=== PATIENT | male | born 1965 | race Caucasian/White ===

== ENCOUNTER 2016-11-05 11:24 | Emergency (ER) | payer OTHER ==
--- NOTE | 2016-11-05 13:26 | DIAGNOSTIC IMAGING REPORT ---
PROCEDURE: CT ABD/PELVIS WITH CONTRAST CLINICAL INDICATION: Lower abdominal pain and blood in the stools x2 days. TECHNIQUE: 125 ml of Isovue 300 were injected intravenously and axial images were obtained of the entire abdomen and pelvis with sagittal and coronal reformations. COMPARISON: CT abdomen/pelvis 08/29/2011. FINDINGS: ABDOMEN: Lung base are clear. Normal heart size. Mild hepatic steatosis. Gallbladder, pancreas, spleen, adrenal glands and the kidneys are normal. Normal abdominal aorta. Moderate splenic flexure and descending colon diverticulosis. PELVIS: Normal appendix. Moderate diverticulosis of the sigmoid colon with midsigmoid bowel wall thickening and minor inflammatory changes. No extraluminal air or abscess. Mildly enlarged prostate. Mild L5-S1 disc space narrowing. IMPRESSION: 1. Mild sigmoid diverticulitis 2. Descending colon diverticulosis 3. Results discussed with Dr. Roberts All CT scans at this facility use dose modulation, iterative reconstruction, and/or weight-based dosing when appropriate to reduce radiation dose to as low as reasonably achievable.
--- NOTE | 2016-11-05 13:44 | ED ORDER SUMMARY ---
..... Patient: RANDA SHEETS OrderSheet [facility] VisitID: [id number] [place] [address] 51y, M Registration Date/Time: 11/05/2016 ORDER SHEET Weight: 70.3 kg (stated) Allergies: None GENERAL ORDERS: CBC w Diff Urgent (11:36 11/05/2016 Talisha SHERIFF) (Ack 11:38 PWeiler ER Tech1) (11:55 KPage-Kuchan R.N.) CMP Urgent (11:36 11/05/2016 Talisha SHERIFF) (Ack 11:38 PWeidonita ER Tech1) (11:55 KPage-Kuchan R.N.) UA-Culture if indicated Urgent (11:36 11/05/2016 Talisha SHERIFF) (Ack 11:38 Maggie ER Tech1) Amylase Urgent (11:36 11/05/2016 Talisha SHERIFF) (Ack 11:38 PWeiler ER Tech1) (11:55 KPage-Kuchan R.N.) Lipase Urgent (11:36 11/05/2016 Talisha SHERIFF) (Ack 11:38 PWeiler ER Tech1) (11:55 KPage-Kuchan R.N.) Set up (anoscope) (12:14 11/05/2016 Talisha SHERIFF) (12:18 MWinterer R.N.) CT Abd/Pel w Cont (No) (N/A) Urgent (12:46 11/05/2016 Talisha SHERIFF) (Ack 12:48 PWeiler ER Tech1) (13:09 PWeiler ER Tech1) MEDICATION ORDERS: IV FLUIDS: IV NS : initial bolus 500 mL (1000 mL/hr), then 125 mL/hr for 4h (NOW); Urgent (11:36 11/05/2016 Talisha SHERIFF) (11:55 KPage-Kuchan R.N.) ORDER SHEET NOTES: [Electronically signed by Joey Brunson R.N. (14:00 11/05/2016)] [Electronically signed by Paul Roberts MD (14:11/05/2016)] [Electronically locked/signed by Joey Brunson R.N. (14:00 11/05/2016)]
--- NOTE | 2016-11-05 13:44 | ED ORDER SUMMARY ---
..... Patient: RANDA SHEETS OrderSheet [facility] VisitID: [id number] [place] [address] 51y, M Registration Date/Time: 11/05/2016 ORDER SHEET Weight: 70.3 kg (stated) Allergies: None GENERAL ORDERS: CBC w Diff Urgent (11:36 11/05/2016 Talisha SHERIFF) (Ack 11:38 PWeiler ER Tech1) (11:55 KPage-Kuchan R.N.) CMP Urgent (11:36 11/05/2016 Talisha SHERIFF) (Ack 11:38 PWeidonita ER Tech1) (11:55 KPage-Kuchan R.N.) UA-Culture if indicated Urgent (11:36 11/05/2016 Talisha SHERIFF) (Ack 11:38 Maggie ER Tech1) Amylase Urgent (11:36 11/05/2016 Talisha SHERIFF) (Ack 11:38 PWeiler ER Tech1) (11:55 KPage-Kuchan R.N.) Lipase Urgent (11:36 11/05/2016 Talisha SHERIFF) (Ack 11:38 PWeiler ER Tech1) (11:55 KPage-Kuchan R.N.) Set up (anoscope) (12:14 11/05/2016 Talisha SHERIFF) (12:18 MWinterer R.N.) CT Abd/Pel w Cont (No) (N/A) Urgent (12:46 11/05/2016 Talisha SHERIFF) (Ack 12:48 PWeiler ER Tech1) (13:09 PWeiler ER Tech1) MEDICATION ORDERS: IV FLUIDS: IV NS : initial bolus 500 mL (1000 mL/hr), then 125 mL/hr for 4h (NOW); Urgent (11:36 11/05/2016 Talisha SHERIFF) (11:55 KPage-Kuchan R.N.) ORDER SHEET NOTES: [Electronically signed by Joey Brunson R.N. (14:00 11/05/2016)] [Electronically signed by Paul Roberts MD (14:11/05/2016)] [Electronically locked/signed by Joey Brunson R.N. (14:00 11/05/2016)]
--- NOTE | 2016-11-05 13:44 | ED NURSING NOTES ---
Clinical Report - Nurses [facility] [address] [place] [address] 11/05/2016 11:28 Patient: RANDA SHEETS TRIAGE Triage time 11:35 Dov 2016. Chief Complaint: CONSTIPATION, RECTAL BLEEDING and BLOOD IN STOOLS (pt with hx of diverticulits, reports constipated past few days, tried laxatives and this morning had bright red blood starting at 1000 today, reports feeling "bloated"). Alert. No acute distress. SEPSIS SCREEN: Sepsis Screen. Negative (no infection suspected/documented). --11:39 Yassine Lincoln R.N. 11:35 11/05/16. BP: 141/94. HR: 83. RR: 17. O2 saturation: 98%. Temp: 98.2 F. Pain level now: 09/25. --11:39 Yassine Lincoln R.N. Weight: 70.3 kg stated. Height/Length: 68 inches Per Patient. BMI: 23.6. --11:37 Yassine Lincoln R.N. Medications None. --11:36 Yassine Lnicoln R.N. Medication/allergy information source: the patient. --11:39 Yassine Lincoln R.N. Allergies None. --11:36 Yassine Lincoln R.N. History Arrived by private vehicle. Historian: patient. 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 PAST MEDICAL HX: Immunizations: up-to-date. SURGERY HX: No history of previous surgery. SOCIAL HX: Heavy tobacco smoker (cigarette)- 1 pack per day. Occasional alcohol use. History of drug use: marijuana. No known contact with a sick individual. ABUSE ASSESSMENT: No report of abuse. SELF HARM ASSESSMENT: A self harm assessment was performed. The patient answered "no" to the question "Do you have thoughts of harming or killing yourself?". FALL RISK ASSESSMENT: Fall risk assessment completed. No fall risk identified. NUTRITIONAL RISK ASSESSMENT: The nutritional risk assessment revealed no deficiencies. FUNCTIONAL ASSESSMENT: Functional assessment: no impairments noted. LEARNING NEEDS ASSESSMENT: The learning needs assessment revealed no barriers. SKIN INTEGRITY ASSESSMENT: Skin integrity risk assessment completed. No skin integrity risk identified. --11:39 Yassine Lincoln R.N. PROBLEMS: UTI - Urinary Tract Infection. Immunizations. Abdominal Pain. Diverticulitis. Back Pain. --11:37 Yassine Lincoln R.N. ADDITIONAL SURGERIES: no known surgeries. Interventions ID band on patient. To treatment room. --11:39 Yassine Lincoln R.N. PHYSICAL ASSESSMENT Ambulatory to room. Patient gowned. GENERAL / NEURO / PSYCH: Alert. Oriented X 4. Appears in no acute distress. HEENT: Mucous membranes are pink. RESPIRATORY: Respirations not labored. CVS: Capillary refill less than 2 seconds. GI / : Diminished bowel sounds in all quadrants. SKIN: Skin is warm and dry. --11:41 Yassine Lincoln R.N. NURSING PROGRESS NOTES Pulse oximeter and NIBP monitor placed on patient; monitor alarms on. Patient gowned. Head of bed elevated. Reassurance given. Patient identifiers checked. Call light placed in reach. Side rails up. Bed placed in lowest position. Brakes of bed on. Patient ready for evaluation- chart flagged. Patient waiting for evaluation. --11:41 Yassine Lincoln R.N. 11:45 11/05/2016 Site #1 started via IV in the right antecubital space with an 20g angiocath; one attempt. Blood drawn: rainbow set. Labeled in the presence of the patient and sent to the lab. Saline lock flushed with 10 mL saline. --11:55 Yassine Lincoln R.N. 11:50 11/05/2016 Started bag #1 1000 mL IV Fluids IV NS (Saline); at 500 mL/hr via site #1 via dial-a-flow. Allergies verified and confirmed 5 rights. IV patency established. IV site checked: no pain, redness, or swelling. IV flushed thoroughly pre- and post-medication administration. --11:55 Yassine Lincoln R.N. 13:57 11/05/2016 IV Fluids IV NS Discontinued: bag #1 infused. Total amount infused: 550 mL. IV patency established. IV site checked: no pain, redness, or swelling. IV flushed thoroughly. --13:57 Joey Brunson R.N. DISPOSITION / DISCHARGE 13:56 11/05/2016 Site #1 removed upon discharge. Catheter intact. --13:56 Joey Brunson R.N. 13:58 11/05/16. Condition at departure: improved. The goals identified in the patient's plan of care were met. No learning barriers present. Discharge instructions provided and reviewed with the patient and family. Reviewed warnings. Reviewed medication(s). Treatments reviewed. Patient and family verbalized understanding. Written instructions provided in Citizen Of [place]. The patient was discharged by the physician. He was discharged home and accompanied by family. He left the Emergency Department ambulatory and via private vehicle. Family member driving. FALL RISK ASSESSMENT: Fall risk assessment completed. No fall risk identified. --13:58 Joey Brunson R.N. 13:56 11/05/16. BP: 145/71. HR: 79. RR: 16. O2 saturation: 99% on room air. Temp: 98 F (oral). Pain level now: 07/26. --13:58 Joey Brunson R.N. 13:58 11/05/16. Departure time: 13:58. --13:58 Joey Brunson R.N. Locked/Released at 11/05/2016 14:00 by Joey Brunson R.N.
--- NOTE | 2016-11-05 13:44 | ED CLINICAL REPORT ---
Clinical Report - Physicians/Mid Levels [facility] [address] [place] [address] 11/05/2016 11:28 Patient: RANDA SHEETS Time Seen: 11:36. Arrived- By private vehicle. Historian- patient. HISTORY OF PRESENT ILLNESS Chief Complaint: ABDOMINAL PAIN. At its maximum, severity described as 5 / 10. When seen in the E.D., severity described as 2 / 10. It is described as cramping and dull. No radiation. It is described as located in the lower abdomen. This started about 4 days ago and is still present. It was gradual in onset and has been intermittent and waxing/waning. The patient has had mild nausea (intermittent). No vomiting. Similar symptoms previously: Diagnosis: diverticulitis. REVIEW OF SYSTEMS The patient has had bloody stools (chronically - worse today. He attributes this to his hemmorhoids). They have been associated with bright red blood in the bowl. No chills, fever, calf pain, chest pain or cough. No difficulty breathing, pedal edema, palpitations, black stools or urinary problems. The patient has experienced sweats. All systems otherwise negative, except as recorded above. PAST HISTORY PCP - [facility]. SOCIAL HISTORY Current every day heavy tobacco smoker (cigarette)- 1 pack per day. Occasional alcohol use. History of occasional drug use: marijuana. Is a local resident. FAMILY HISTORY Hypertension in first-degree relative (mother and father); cancer in first-degree relative (father). brother with alcoholism. ADDITIONAL NOTES The nursing notes have been reviewed. PHYSICAL EXAM Vital Signs: 11/05/2016 11:35 BP: 141/94. HR: 83. RR: 17. O2 saturation: 98%. Temp: 98.2 F. Pain level now: 5/10. Have been reviewed. Appearance: Alert. Eyes: Pupils equal, round and reactive to light. ENT: Pharynx normal. Neck: Normal inspection. Neck supple. CVS: Normal heart rate and rhythm. Heart sounds normal. Respiratory: No respiratory distress. Breath sounds normal. Abdomen: Soft. Moderate tenderness in the left lower quadrant. Bowel sounds normal. No organomegaly. No mass. Back: Normal inspection. Rectal: Inflamed and bleeding external hemorrhoids. ( digital rectal examination and anoscopy deferred due to severe hemorrhoid tenderness.). Skin: Skin warm and dry. Normal skin color. Normal skin turgor. Extremities: Extremities exhibit normal ROM. No calf tenderness. No lower extremity edema. LABS, X-RAYS, AND EKG Abdominal CT: There is evidence of diverticulitis. No focal abscess or perforation with free air. The study was interpreted contemporaneously by me and discussed with the radiologist. Laboratory Tests: CBC w Diff: (VANESSA: 11/05/2016 11:52) ( MsgRcvd 11/05/2016 11:59) Final results Test Result Flag Units (Reference) WHITE BLOOD COUNT 14.7 H K/uL (4.5-11.5) RED BLOOD COUNT 5.93 H M/uL (4.50-5.90) HEMOGLOBIN 17.4 gm/dL (13.5-17.5) HEMATOCRIT 52.2 % (41.0-53.0) MEAN CELL VOLUME 88 fL (80-100) MEAN CORPUSCULAR HGB 29 pg (26-34) MEAN CORPUSCULAR HGB CONC 33 g/dL (31-37) RED CELL DISTRIBUTION WIDTH 13.9 % (11.6-14.8) PLATELET COUNT 170 K/uL (150-400) NEUTROPHIL % 75.8 H % (50-75) LYMPH % 15.7 L % (25-40) MONO % 6.3 % (3-14) EOSINOPHIL % 1.8 % (0-4) BASOPHIL % 0.4 % (0-2) CMP: (VANESSA: 11/05/2016 11:52) ( MsgRcvd 11/05/2016 12:27) Final results Test Result Flag Units (Reference) GLUCOSE 90 mg/dL (70-110) BUN 11 mg/dL (7-18) CREATININE 0.8 mg/dL (0.6-1.3) Estimated GFR >60 mL/min Estimated GFR- >60 mL/min Note: Persistent reduction over 3 months in eGFR<60 mL/min/1.73 m2 defines CKD. Patients with eGFR values>=60 mL/min/1.73 m2 may also have CKD if evidence ofpersistent proteinuria. Additional information may be foundat www.kidney.org. SODIUM 138 mmol/L (136-145) POTASSIUM 4.0 mmol/L (3.5-5.1) CHLORIDE 99 mmol/L (98-107) CARBON DIOXIDE 32 mmol/L (21-32) CALCIUM 9.8 mg/dL (8.5-10.1) TOTAL PROTEIN 8.2 g/dL (6.4-8.2) ALBUMIN 4.2 g/dL (3.3-5.0) BILIRUBIN, TOTAL 0.9 mg/dL (0.0-1.0) ALKALINE PHOSPHATASE 65 U/L (46-116) AST (SGOT) 17 U/L (15-37) ALT (SGPT) 25 U/L (12-78) LIPASE 351 U/L (73-393) AMYLASE 47 U/L (25-115) . PROGRESS AND PROCEDURES Course of Care: Patient is stable. Patient/family counseled. Old medical records reviewed. Disposition: Discharged. Condition: stable. CLINICAL IMPRESSION Acute diverticulitis. Thrombosed bleeding external hemorrhoids INSTRUCTIONS No driving or operating machinery while taking medication. Drink plenty of fluids. Warnings: Further evaluation is necessary. GENERAL WARNINGS: Return or contact your physician immediately if your condition worsens or changes unexpectedly, if not improving as expected, or if other problems arise. Prescription Medications: Hydrocodone/APAP 5mg/325mg: take 1 to 2 orally every 6 hours as needed for pain. Dispense fifteen (15). No refills. Cipro 500 mg: take 1 tab orally every 12 hours for 10 days. Dispense twenty (20). No refills. Substitution is permissible. Flagyl 500 mg: Take 1 tablet orally every 8 hours for 10 days. No refill. Substitution is permissible Follow-up: Follow up with a surgeon- as recommended by your primary care physician. Understanding of the discharge instructions verbalized by patient. Follow-up with: [facility], , , [address], , [place], [address] Follow up in three days. Call for the next available appointment. (Electronically signed by Paul Roberts MD 11/05/2016 14:06)
--- NOTE | 2016-11-05 13:44 | ED NURSING NOTES ---
Clinical Report - Nurses [facility] [address] [place] [address] 11/05/2016 11:28 Patient: RANDA SHEETS TRIAGE Triage time 11:35 Dov 2016. Chief Complaint: CONSTIPATION, RECTAL BLEEDING and BLOOD IN STOOLS (pt with hx of diverticulits, reports constipated past few days, tried laxatives and this morning had bright red blood starting at 1000 today, reports feeling "bloated"). Alert. No acute distress. SEPSIS SCREEN: Sepsis Screen. Negative (no infection suspected/documented). --11:39 Yassine Lincoln R.N. 11:35 11/05/16. BP: 141/94. HR: 83. RR: 17. O2 saturation: 98%. Temp: 98.2 F. Pain level now: 09/25. --11:39 Yassine Lincoln R.N. Weight: 70.3 kg stated. Height/Length: 68 inches Per Patient. BMI: 23.6. --11:37 Yassine Lincoln R.N. Medications None. --11:36 Yassine Lincoln R.N. Medication/allergy information source: the patient. --11:39 Yassine Lincoln R.N. Allergies None. --11:36 Yassine Lincoln R.N. History Arrived by private vehicle. Historian: patient. 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 PAST MEDICAL HX: Immunizations: up-to-date. SURGERY HX: No history of previous surgery. SOCIAL HX: Heavy tobacco smoker (cigarette)- 1 pack per day. Occasional alcohol use. History of drug use: marijuana. No known contact with a sick individual. ABUSE ASSESSMENT: No report of abuse. SELF HARM ASSESSMENT: A self harm assessment was performed. The patient answered "no" to the question "Do you have thoughts of harming or killing yourself?". FALL RISK ASSESSMENT: Fall risk assessment completed. No fall risk identified. NUTRITIONAL RISK ASSESSMENT: The nutritional risk assessment revealed no deficiencies. FUNCTIONAL ASSESSMENT: Functional assessment: no impairments noted. LEARNING NEEDS ASSESSMENT: The learning needs assessment revealed no barriers. SKIN INTEGRITY ASSESSMENT: Skin integrity risk assessment completed. No skin integrity risk identified. --11:39 Yassine Lincoln R.N. PROBLEMS: UTI - Urinary Tract Infection. Immunizations. Abdominal Pain. Diverticulitis. Back Pain. --11:37 Yassine Lincoln R.N. ADDITIONAL SURGERIES: no known surgeries. Interventions ID band on patient. To treatment room. --11:39 Yassine Lincoln R.N. PHYSICAL ASSESSMENT Ambulatory to room. Patient gowned. GENERAL / NEURO / PSYCH: Alert. Oriented X 4. Appears in no acute distress. HEENT: Mucous membranes are pink. RESPIRATORY: Respirations not labored. CVS: Capillary refill less than 2 seconds. GI / : Diminished bowel sounds in all quadrants. SKIN: Skin is warm and dry. --11:41 Yassine Lincoln R.N. NURSING PROGRESS NOTES Pulse oximeter and NIBP monitor placed on patient; monitor alarms on. Patient gowned. Head of bed elevated. Reassurance given. Patient identifiers checked. Call light placed in reach. Side rails up. Bed placed in lowest position. Brakes of bed on. Patient ready for evaluation- chart flagged. Patient waiting for evaluation. --11:41 Yassine Lincoln R.N. 11:45 11/05/2016 Site #1 started via IV in the right antecubital space with an 20g angiocath; one attempt. Blood drawn: rainbow set. Labeled in the presence of the patient and sent to the lab. Saline lock flushed with 10 mL saline. --11:55 Yassine Lincoln R.N. 11:50 11/05/2016 Started bag #1 1000 mL IV Fluids IV NS (Saline); at 500 mL/hr via site #1 via dial-a-flow. Allergies verified and confirmed 5 rights. IV patency established. IV site checked: no pain, redness, or swelling. IV flushed thoroughly pre- and post-medication administration. --11:55 Yassine Lincoln R.N. 13:57 11/05/2016 IV Fluids IV NS Discontinued: bag #1 infused. Total amount infused: 550 mL. IV patency established. IV site checked: no pain, redness, or swelling. IV flushed thoroughly. --13:57 Joey Brunson R.N. DISPOSITION / DISCHARGE 13:56 11/05/2016 Site #1 removed upon discharge. Catheter intact. --13:56 Joey Brunson R.N. 13:58 11/05/16. Condition at departure: improved. The goals identified in the patient's plan of care were met. No learning barriers present. Discharge instructions provided and reviewed with the patient and family. Reviewed warnings. Reviewed medication(s). Treatments reviewed. Patient and family verbalized understanding. Written instructions provided in [place]. The patient was discharged by the physician. He was discharged home and accompanied by family. He left the Emergency Department ambulatory and via private vehicle. Family member driving. FALL RISK ASSESSMENT: Fall risk assessment completed. No fall risk identified. --13:58 Joey Brunson R.N. 13:56 11/05/16. BP: 145/71. HR: 79. RR: 16. O2 saturation: 99% on room air. Temp: 98 F (oral). Pain level now: 07/26. --13:58 Joey Brunson R.N. 13:58 11/05/16. Departure time: 13:58. --13:58 Joey Brusnon R.N. Locked/Released at 11/05/2016 14:00 by Joey Brunson R.N.
--- NOTE | 2016-11-05 13:44 | ED CLINICAL REPORT ---
Clinical Report - Physicians/Mid Levels [facility] [address] [place] [address] 11/05/2016 11:28 Patient: RANDA SHEETS Time Seen: 11:36. Arrived- By private vehicle. Historian- patient. HISTORY OF PRESENT ILLNESS Chief Complaint: ABDOMINAL PAIN. At its maximum, severity described as 5 / 10. When seen in the E.D., severity described as 2 / 10. It is described as cramping and dull. No radiation. It is described as located in the lower abdomen. This started about 4 days ago and is still present. It was gradual in onset and has been intermittent and waxing/waning. The patient has had mild nausea (intermittent). No vomiting. Similar symptoms previously: Diagnosis: diverticulitis. REVIEW OF SYSTEMS The patient has had bloody stools (chronically - worse today. He attributes this to his hemmorhoids). They have been associated with bright red blood in the bowl. No chills, fever, calf pain, chest pain or cough. No difficulty breathing, pedal edema, palpitations, black stools or urinary problems. The patient has experienced sweats. All systems otherwise negative, except as recorded above. PAST HISTORY PCP - [facility]. SOCIAL HISTORY Current every day heavy tobacco smoker (cigarette)- 1 pack per day. Occasional alcohol use. History of occasional drug use: marijuana. Is a local resident. FAMILY HISTORY Hypertension in first-degree relative (mother and father); cancer in first-degree relative (father). brother with alcoholism. ADDITIONAL NOTES The nursing notes have been reviewed. PHYSICAL EXAM Vital Signs: 11/05/2016 11:35 BP: 141/94. HR: 83. RR: 17. O2 saturation: 98%. Temp: 98.2 F. Pain level now: 5/10. Have been reviewed. Appearance: Alert. Eyes: Pupils equal, round and reactive to light. ENT: Pharynx normal. Neck: Normal inspection. Neck supple. CVS: Normal heart rate and rhythm. Heart sounds normal. Respiratory: No respiratory distress. Breath sounds normal. Abdomen: Soft. Moderate tenderness in the left lower quadrant. Bowel sounds normal. No organomegaly. No mass. Back: Normal inspection. Rectal: Inflamed and bleeding external hemorrhoids. ( digital rectal examination and anoscopy deferred due to severe hemorrhoid tenderness.). Skin: Skin warm and dry. Normal skin color. Normal skin turgor. Extremities: Extremities exhibit normal ROM. No calf tenderness. No lower extremity edema. LABS, X-RAYS, AND EKG Abdominal CT: There is evidence of diverticulitis. No focal abscess or perforation with free air. The study was interpreted contemporaneously by me and discussed with the radiologist. Laboratory Tests: CBC w Diff: (VANESSA: 11/05/2016 11:52) ( MsgRcvd 11/05/2016 11:59) Final results Test Result Flag Units (Reference) WHITE BLOOD COUNT 14.7 H K/uL (4.5-11.5) RED BLOOD COUNT 5.93 H M/uL (4.50-5.90) HEMOGLOBIN 17.4 gm/dL (13.5-17.5) HEMATOCRIT 52.2 % (41.0-53.0) MEAN CELL VOLUME 88 fL (80-100) MEAN CORPUSCULAR HGB 29 pg (26-34) MEAN CORPUSCULAR HGB CONC 33 g/dL (31-37) RED CELL DISTRIBUTION WIDTH 13.9 % (11.6-14.8) PLATELET COUNT 170 K/uL (150-400) NEUTROPHIL % 75.8 H % (50-75) LYMPH % 15.7 L % (25-40) MONO % 6.3 % (3-14) EOSINOPHIL % 1.8 % (0-4) BASOPHIL % 0.4 % (0-2) CMP: (VANESSA: 11/05/2016 11:52) ( MsgRcvd 11/05/2016 12:27) Final results Test Result Flag Units (Reference) GLUCOSE 90 mg/dL (70-110) BUN 11 mg/dL (7-18) CREATININE 0.8 mg/dL (0.6-1.3) Estimated GFR >60 mL/min Estimated GFR- >60 mL/min Note: Persistent reduction over 3 months in eGFR<60 mL/min/1.73 m2 defines CKD. Patients with eGFR values>=60 mL/min/1.73 m2 may also have CKD if evidence ofpersistent proteinuria. Additional information may be foundat www.[email or web address].org. SODIUM 138 mmol/L (136-145) POTASSIUM 4.0 mmol/L (3.5-5.1) CHLORIDE 99 mmol/L (98-107) CARBON DIOXIDE 32 mmol/L (21-32) CALCIUM 9.8 mg/dL (8.5-10.1) TOTAL PROTEIN 8.2 g/dL (6.4-8.2) ALBUMIN 4.2 g/dL (3.3-5.0) BILIRUBIN, TOTAL 0.9 mg/dL (0.0-1.0) ALKALINE PHOSPHATASE 65 U/L (46-116) AST (SGOT) 17 U/L (15-37) ALT (SGPT) 25 U/L (12-78) LIPASE 351 U/L (73-393) AMYLASE 47 U/L (25-115) . PROGRESS AND PROCEDURES Course of Care: Patient is stable. Patient/family counseled. Old medical records reviewed. Disposition: Discharged. Condition: stable. CLINICAL IMPRESSION Acute diverticulitis. Thrombosed bleeding external hemorrhoids INSTRUCTIONS No driving or operating machinery while taking medication. Drink plenty of fluids. Warnings: Further evaluation is necessary. GENERAL WARNINGS: Return or contact your physician immediately if your condition worsens or changes unexpectedly, if not improving as expected, or if other problems arise. Prescription Medications: Hydrocodone/APAP 5mg/325mg: take 1 to 2 orally every 6 hours as needed for pain. Dispense fifteen (15). No refills. Cipro 500 mg: take 1 tab orally every 12 hours for 10 days. Dispense twenty (20). No refills. Substitution is permissible. Flagyl 500 mg: Take 1 tablet orally every 8 hours for 10 days. No refill. Substitution is permissible Follow-up: Follow up with a surgeon- as recommended by your primary care physician. Understanding of the discharge instructions verbalized by patient. Follow-up with: [facility], , , [address], , [place], [id number] Follow up in three days. Call for the next available appointment. (Electronically signed by Paul Roberts MD 11/05/2016 14:06)
--- NOTE | 2016-11-05 14:06 | ED DISCHARGE INSTRUCTIONS ---
Patient: RANDA SHEETS General Instructions [facility] VisitID: [id number] [address] [place] [address] 51y, M Registration Date/Time: 11/05/2016 Acute diverticulitis. Thrombosed bleeding external hemorrhoids INSTRUCTIONS No driving or operating machinery while taking medication. Drink plenty of fluids. Warnings: Further evaluation is necessary. GENERAL WARNINGS: Return or contact your physician immediately if your condition worsens or changes unexpectedly, if not improving as expected, or if other problems arise. Prescription Medications: Hydrocodone/APAP 5mg/325mg: take 1 to 2 orally every 6 hours as needed for pain. Dispense fifteen (15). No refills. Cipro 500 mg: take 1 tab orally every 12 hours for 10 days. Dispense twenty (20). No refills. Substitution is permissible. Flagyl 500 mg: Take 1 tablet orally every 8 hours for 10 days. No refill. Substitution is permissible Follow-up: Follow up with a surgeon- as recommended by your primary care physician. Understanding of the discharge instructions verbalized by patient. Follow-up with: [facility], , , [address], , [place], [id number] Follow up in three days. Call for the next available appointment. ADDITIONAL INFORMATION Diverticulitis Some people develop pouches along the wall of the colon as they get older. The pouches,called diverticuli, usually cause no symptoms. If the pouches become blocked, an infection may occur known as diverticulitis. This causes lower abdominal pain and fever. If not treated, it can become a serious condition, causing an abscess to form inside the pouch. The abscess may block the instestinal tract even or rupture, spreading infection throughout the abdomen. When treatment is started early, oral antibiotics alone may be enough to cure diverticulitis. This method is tried first. However, if you do not improve or if your condition worsens while you are trying oral antibiotics, it will be necessary to admit you to the hospital for IV antibiotics. Severe cases may require surgery. Home care The following guidelines will help you care for your diverticulitis at home: During the acute illness, rest and follow a low-fiber diet: Foods to Include: flake cereal, mashed potatoes, pancakes, waffles, pasta, white bread, rice, applesauce, bananas, eggs, meat, fish, poultry, tofu, cooked vegetables. Take antibiotics exactly as directed. Do not miss any doses or stop taking the medication, even if you feel better. Monitor your temperature and report any rising temperature to your doctor. Preventing future attacks Once you have had an episode of diverticulitis, you are at risk of having a recurrence. After you have recovered from this episode, you may be able to reduce your risk by eating a high-fiber diet (2035 gm/day of fiber). This cleans out the colon pouches that already exist and prevent new ones from forming. Foods high in fiber includes fresh fruits and edible peelings, raw or lightly cooked vegetables, whole grain cereals and breads, dried beans and peas, bran. Follow-up care Follow up with your doctor as advised or sooner if you are not improving in the nexttwo days. When to seek medical care Get prompt medical attention if any of the following occur: Fever of 100.4F (38C) or higher, or as directed by your health care provider Repeated vomiting or swelling of the abdomen Weakness, dizziness, light-headedness Increasing abdominal pain that becomes severe or spreads to your back Pain that moves to the right lower abdomen Rectal bleeding (red, black or maroon color of the stools) Unexpected vaginal bleeding Hemorrhoids,External A hemorrhoid is a local swelling of the veins around the rectum. These most often occur from repeated forceful straining during bowel movements or heavy lifting. It may also occur in the last few months of . A hemorrhoid feels like a soft lump. It may itch from time to time. When it is inflamed it becomes hard and very painful. Home Care: SITZ BATHS: Sit in a tub filled with about 6 inches of hot water. Allow the water to run in order to keep it hot for a total of 10-15 minutes. Repeat this three times a day until pain is relieved. Keep your stools soft to avoid the need to strain when having a bowel movement. Unless another medicine was prescribed, try the following: IF YOU ARE CONSTIPATED: You may use [id number] laxatives such as MILK OF MAGNESIA (mild acting) or, DULCOLAX (if stronger action is needed). IF YOU ARE NOT CONSTIPATED but stools are hard, try taking Colace (docusate sodium) which is a stool softener. This will soften stools without producing diarrhea. Drinking extra fluids may also help. The use of creams applied to the hemorrhoid itself, such as ANUSOL or PREPARATION H, will be helpful to reduce pain and itching, and speed healing. Prevention: Avoid straining on the toilet by keeping stools soft. Increasing FIBER in your diet (fruits, cereals, vegetables and grains) will promote healthy bowel movement. If this is not working, you may use METAMUCIL and similar products. These are etgs-tvz-[id number] fiber supplements. You must drink extra fluids when taking these to avoid constipation. Follow Up with your doctor if you do not begin to respond to the above treatment within the next few days. Get Prompt Medical Attention if any of the following occur: Large amount of rectal bleeding (more than 1 cup of blood in 24 hours) Increasing rectal pain or rectal pain that continues for more than three days of treatment Weakness, dizziness or fainting Vomiting blood (red or black color) Hydrocodone Bitartrate, Acetaminophen Oral tablet What is this medicine? ACETAMINOPHEN; HYDROCODONE (a set a LÓPEZ leeanne fen; jaclyn droe KOE done) is a pain reliever. It is used to treat mild to moderate pain. How should I use this medicine? Take this medicine by mouth. Swallow it with a full glass of water. Follow the directions on the prescription label. If the medicine upsets your stomach, take the medicine with food or milk. Do not take more than you are told to take. Talk to your template checker regarding the use of this medicine in children. This medicine is not approved for use in children. What side effects may I notice from receiving this medicine? Side effects that you should report to your doctor or health care transition coordinator as soon as possible: allergic reactions like skin rash, itching or hives, swelling of the face, lips, or tongue breathing problems confusion feeling faint or lightheaded, falls stomach pain yellowing of the eyes or skin Side effects that usually do not require medical attention (report to your doctor or health care transition coordinator if they continue or are bothersome): nausea, vomiting stomach upset What may interact with this medicine? alcohol antihistamines isoniazid medicines for depression, anxiety, or psychotic disturbances medicines for sleep muscle relaxants naltrexone narcotic medicines (opiates) for pain phenobarbital ritonavir tramadol What if I miss a dose? If you miss a dose, take it as soon as you can. If it is almost time for your next dose, take only that dose. Do not take double or extra doses. Where should I keep my medicine? Keep out of the reach of children. This medicine can be abused. Keep your medicine in a safe place to protect it from theft. Do not share this medicine with anyone. Selling or giving away this medicine is dangerous and against the law. Store at room temperature between 15 and 30 degrees C (59 and 86 degrees F). Protect from light. Keep container tightly closed. Throw away any unused medicine after the expiration date. Discard unused medicine and used packaging carefully. Pets and children can be harmed if they find used or lost packages. What should I tell my health care provider before I take this medicine? They need to know if you have any of these conditions: brain tumor Crohn's disease, inflammatory bowel disease, or ulcerative colitis drink more than 3 alcohol-containing drinks per day drug abuse or addiction head injury heart or circulation problems kidney disease or problems going to the bathroom liver disease lung disease, asthma, or breathing problems an unusual or allergic reaction to acetaminophen, hydrocodone, other opioid analgesics, other medicines, foods, dyes, or preservatives or trying to get breast-feeding What should I watch for while using this medicine? Tell your doctor or health care transition coordinator if your pain does not go away, if it gets worse, or if you have new or a different type of pain. You may develop tolerance to the medicine. Tolerance means that you will need a higher dose of the medicine for pain relief. Tolerance is normal and is expected if you take the medicine for a long time. Do not suddenly stop taking your medicine because you may develop a severe reaction. Your body becomes used to the medicine. This does NOT mean you are addicted. Addiction is a behavior related to getting and using a drug for a non-medical reason. If you have pain, you have a medical reason to take pain medicine. Your doctor will tell you how much medicine to take. If your doctor wants you to stop the medicine, the dose will be slowly lowered over time to avoid any side effects. You may get drowsy or dizzy when you first start taking the medicine or change doses. Do not drive, use machinery, or do anything that may be dangerous until you know how the medicine affects you. Stand or sit up slowly. There are different types of narcotic medicines (opiates) for pain. If you take more than one type at the same time, you may have more side effects. Give your health care provider a list of all medicines you use. Your doctor will tell you how much medicine to take. Do not take more medicine than directed. Call emergency for help if you have problems breathing. The medicine will cause constipation. Try to have a bowel movement at least every 2 to 3 days. If you do not have a bowel movement for 3 days, call your doctor or health care transition coordinator. Too much acetaminophen can be very dangerous. Do not take Tylenol (acetaminophen) or medicines that contain acetaminophen with this medicine. Many non-prescription medicines contain acetaminophen. Always read the labels carefully. Ciprofloxacin Hydrochloride Oral tablet What is this medicine? CIPROFLOXACIN (sip tona FLOX a sin) is a quinolone antibiotic. It is used to treat certain kinds of bacterial infections. It will not work for colds, flu, or other viral infections. How should I use this medicine? Take this medicine by mouth with a glass of water. Follow the directions on the prescription label. Take your medicine at regular intervals. Do not take your medicine more often than directed. Take all of your medicine as directed even if you think your are better. Do not skip doses or stop your medicine early. You can take this medicine with food or on an empty stomach. It can be taken with a meal that contains dairy or calcium, but do not take it alone with a dairy product, like milk or yogurt or calcium-fortified juice. A special MedGuide will be given to you by the pharmacist with each prescription and refill. Be sure to read this information carefully each time. Talk to your template checker regarding the use of this medicine in children. Special care may be needed. What side effects may I notice from receiving this medicine? Side effects that you should report to your doctor or health care transition coordinator as soon as possible: - allergic reactions like skin rash, itching or hives, swelling of the face, lips, or tongue - breathing problems - confusion, nightmares or hallucinations - feeling faint or lightheaded, falls - irregular heartbeat - joint, muscle or tendon pain or swelling - pain or trouble passing urine -persistent headache with or without blurred vision - redness, blistering, peeling or loosening of the skin, including inside the mouth - seizure - unusual pain, numbness, tingling, or weakness Side effects that usually do not require medical attention (report to your doctor or health care transition coordinator if they continue or are bothersome): - diarrhea - nausea or stomach upset - white patches or sores in the mouth What may interact with this medicine? Do not take this medicine with any of the following medications: cisapride droperidol terfenadine tizanidine This medicine may also interact with the following medications: antacids caffeine cyclosporin didanosine (ddI) buffered tablets or powder medicines for diabetes medicines for inflammation like ibuprofen, naproxen methotrexate multivitamins omeprazole phenytoin probenecid sucralfate theophylline warfarin What if I miss a dose? If you miss a dose, take it as soon as you can. If it is almost time for your next dose, take only that dose. Do not take double or extra doses. Where should I keep my medicine? Keep out of the reach of children. Store at room temperature below 30 degrees C (86 degrees F). Keep container tightly closed. Throw away any unused medicine after the expiration date. What should I tell my health care provider before I take this medicine? They need to know if you have any of these conditions: -bone problems -cerebral disease -joint problems -irregular heartbeat -kidney disease -liver disease -myasthenia gravis -seizure disorder -tendon problems -an unusual or allergic reaction to ciprofloxacin, other antibiotics or medicines, foods, dyes, or preservatives - or trying to get -breast-feeding What should I watch for while using this medicine? Tell your doctor or health care transition coordinator if your symptoms do not improve. Do not treat diarrhea with over the counter products. Contact your doctor if you have diarrhea that lasts more than 2 days or if it is severe and watery. You may get drowsy or dizzy. Do not drive, use machinery, or do anything that needs mental alertness until you know how this medicine affects you. Do not stand or sit up quickly, especially if you are an older patient. This reduces the risk of dizzy or fainting spells. This medicine can make you more sensitive to the sun. Keep out of the sun. If you cannot avoid being in the sun, wear protective clothing and use sunscreen. Do not use sun lamps or tanning beds/booths. Avoid antacids, aluminum, calcium, iron, magnesium, and zinc products for 6 hours before and 2 hours after taking a dose of this medicine. Metronidazole Oral tablet What is this medicine? METRONIDAZOLE (me troe NI da zole) is an antiinfective. It is used to treat certain kinds of bacterial and protozoal infections. It will not work for colds, flu, or other viral infections. How should I use this medicine? Take this medicine by mouth with a full glass of water. Follow the directions on the prescription label. Take your medicine at regular intervals. Do not take your medicine more often than directed. Take all of your medicine as directed even if you think you are better. Do not skip doses or stop your medicine early. Talk to your template checker regarding the use of this medicine in children. Special care may be needed. What side effects may I notice from receiving this medicine? Side effects that you should report to your doctor or health care transition coordinator as soon as possible: allergic reactions like skin rash or hives, swelling of the face, lips, or tongue confusion, clumsiness difficulty speaking discolored or sore mouth dizziness fever, infection numbness, tingling, pain or weakness in the hands or feet trouble passing urine or change in the amount of urine redness, blistering, peeling or loosening of the skin, including inside the mouth seizures unusually weak or tired vaginal irritation, dryness, or discharge Side effects that usually do not require medical attention (report to your doctor or health care transition coordinator if they continue or are bothersome): diarrhea headache irritability metallic taste nausea stomach pain or cramps trouble sleeping What may interact with this medicine? Do not take this medicine with any of the following medications: alcohol or any product that contains alcohol amprenavir oral solution cisapride disulfiram dofetilide dronedarone paclitaxel injection pimozide ritonavir oral solution sertraline oral solution sulfamethoxazole-trimethoprim injection thioridazine ziprasidone This medicine may also interact with the following medications: cimetidine lithium other medicines that prolong the QT interval (cause an abnormal heart rhythm) phenobarbital phenytoin warfarin What if I miss a dose? If you miss a dose, take it as soon as you can. If it is almost time for your next dose, take only that dose. Do not take double or extra doses. Where should I keep my medicine? Keep out of the reach of children. Store at room temperature below 25 degrees C (77 degrees F). Protect from light. Keep container tightly closed. Throw away any unused medicine after the expiration date. What should I tell my health care provider before I take this medicine? They need to know if you have any of these conditions: anemia or other blood disorders disease of the nervous system fungal or yeast infection if you drink alcohol containing drinks liver disease seizures an unusual or allergic reaction to metronidazole, or other medicines, foods, dyes, or preservatives or trying to get breast-feeding What should I watch for while using this medicine? Tell your doctor or health care transition coordinator if your symptoms do not improve or if they get worse. You may get drowsy or dizzy. Do not drive, use machinery, or do anything that needs mental alertness until you know how this medicine affects you. Do not stand or sit up quickly, especially if you are an older patient. This reduces the risk of dizzy or fainting spells. Avoid alcoholic drinks while you are taking this medicine and for three days afterward. Alcohol may make you feel dizzy, sick, or flushed. If you are being treated for a sexually transmitted disease, avoid sexual contact until you have finished your treatment. Your sexual partner may also need treatment. You have been given the following additional information: Diverticulitis Hemorrhoids Hydrocodone Bitartrate, Acetaminophen Oral tablet Ciprofloxacin Hydrochloride Oral tablet Metronidazole Oral tablet No driving or operating machinery while taking medication. (Electronically signed by Paul Roberts MD 11/05/2016 14:06)
--- NOTE | 2016-11-05 14:06 | ED MED RECONCILIATION SUMMARY ---
Patient: RANDA SHEETS Medication Reconciliation Report Located Within [facility] VisitID: [id number] [address] [place] [address] 51y, M Registration Date/Time: 11/05/2016 Weight: 70.3 kg Height/Length: 68 in. BMI: 23.6 ALLERGIES: None The patient's Home Medications are listed below: NONE. The source(s) of the original Home Medication information: patient The following Medications were given to the patient in the Emergency Department: IV NS IV Fluids bolus 0, then 500 mL/hr, administered: 11/05/2016 11:50:00 AM The following Medications were prescribed to the patient: Hydrocodone/APAP 5mg/325mg: take 1 to 2 orally every 6 hours as needed for pain. Dispense fifteen (15). No refills. -- Paul Roberts MD Cipro 500 mg: take 1 tab orally every 12 hours for 10 days. Dispense twenty (20). No refills. Substitution is permissible. -- Paul Roberts MD Flagyl 500 mg: Take 1 tablet orally every 8 hours for 10 days. No refill. Substitution is permissible -- Paul Roberts MD
--- NOTE | 2016-11-05 14:06 | ED MED RECONCILIATION SUMMARY ---
Patient: RANDA SHEETS Medication Reconciliation Report [facility] VisitID: [id number] [address] [place] [address] 51y, M Registration Date/Time: 11/05/2016 Weight: 70.3 kg Height/Length: 68 in. BMI: 23.6 ALLERGIES: None The patient's Home Medications are listed below: NONE. The source(s) of the original Home Medication information: patient The following Medications were given to the patient in the Emergency Department: IV NS IV Fluids bolus 0, then 500 mL/hr, administered: 11/05/2016 11:50:00 AM The following Medications were prescribed to the patient: Hydrocodone/APAP 5mg/325mg: take 1 to 2 orally every 6 hours as needed for pain. Dispense fifteen (15). No refills. -- Paul Roberts MD Cipro 500 mg: take 1 tab orally every 12 hours for 10 days. Dispense twenty (20). No refills. Substitution is permissible. -- Paul Roberts MD Flagyl 500 mg: Take 1 tablet orally every 8 hours for 10 days. No refill. Substitution is permissible -- Paul Roberts MD
--- NOTE | 2016-11-05 14:06 | ED MAR SUMMARY ---
..... Medication Administration Record [facility] [address] [place] [place] [address] Patient: RANDA SHEETS Visit ID: [id number] 51y, M Weight: 70.3 kg Height/Length: 68 in BMI: 23.6 ALLERGIES: None Start 11:50 11/05/2016 Yassine Lincoln RRoma, Stop 13:57 11/05/2016 Joey Brunson RRoma Medication Administered: IV NS (SALINE), Dose: IV Fluids, Rate: 500 mL/hr, Dispensed: 1000 mL bag, Site: #1 right AC. Medication Ordered: IV NS : initial bolus 500 mL (1000 mL/hr), then 125 mL/hr for 4h (NOW); Urgent.
--- NOTE | 2016-11-05 14:06 | ED MAR SUMMARY ---
..... Medication Administration Record [facility] [address] [place] [address] Patient: RANDA SHEETS Visit ID: [id number] 51y, M Weight: 70.3 kg Height/Length: 68 in BMI: 23.6 ALLERGIES: None Start 11:50 11/05/2016 Yassine Lincoln RRoma, Stop 13:57 11/05/2016 Joey Brunson RRoma Medication Administered: IV NS (SALINE), Dose: IV Fluids, Rate: 500 mL/hr, Dispensed: 1000 mL bag, Site: #1 right AC. Medication Ordered: IV NS : initial bolus 500 mL (1000 mL/hr), then 125 mL/hr for 4h (NOW); Urgent.
== END 2016-11-05 13:58 | disposition home or self-care (01) ==
LOC: ED SRH 11:24
DX: K57.92 Diverticulitis of intestine, part unspecified, without perforation or abscess without bleeding (principal); K64.5 Perianal venous thrombosis; F17.210 Nicotine dependence, cigarettes, uncomplicated
CPT/HCPCS: 90100; 92235; 92530; 95059